=== PATIENT | male | born 1970 | race Caucasian/White ===

== ENCOUNTER 2018-01-14 09:59 | Emergency (ER) | payer SELFPAY ==
[2018-01-14] MEDS ORDERED: Bacitracin Oint 1 GM U/D Packet TOP ONE (10:25)
--- NOTE | 2018-01-14 10:25 | EDM.PDOC ---
ED HPI GENERAL MEDICAL PROBLEM - General Chief Complaint: Lower Extremity Injury/Pain Stated Complaint: PAIN IN FEET Time Seen by Provider: 01/14/18 10:03 Source of Information: Reports: Patient History Limitations: Reports: No Limitations - History of Present Illness INITIAL COMMENTS - FREE TEXT/NARRATIVE: HISTORY AND PHYSICAL: History of present illness: Patient is a 47-year-old male who presents to the emergency room today with multiple complaints and concerns. Patient reports he's had a long standing history of bilateral lower extremity pain or which she describes as a sharp burning pain and/or tingling sensation. When he is ambulating or standing for long periods of time the pain increases. He recently restarted working after taking 3 months off to help care for his mother. 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 Today he noticed his toe nail on the left great toe "was coming off". He was able to easily rip part of the nail off. Denies any injury or trauma to the affected toe. Patient last physical examination with lab work was approximately 2 years ago. He states he been seen multiple times for this lower extremity discomfort while in [place] and has been told both that it "could be" diabetes or neuropathy but never started treatment or was given any medication management. 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 Patient denies any fever, chills, chest pain, shortness of breath, abdominal pain, nausea, vomiting or diarrhea. Review of systems: As per history of present illness and below otherwise all systems reviewed and negative. Past medical history: As per history of present illness and as reviewed below otherwise noncontributory. Surgical history: As per history of present illness and as reviewed below otherwise noncontributory. Social history: No reported history of drug or alcohol abuse. Family history: As per history of present illness and as reviewed below otherwise noncontributory. Physical exam: General: Well-developed and well-nourished 47-year-old male. Alert and oriented. Nontoxic appearing and in no acute distress. HEENT: Atraumatic, normocephalic, pupils equal and reactive bilaterally, negative for conjunctival pallor or scleral icterus, mucous membranes moist, throat clear, neck supple, nontender, trachea midline. No drooling or trismus noted. No meningeal signs Lungs: Clear to auscultation, breath sounds equal bilaterally, chest nontender. Heart: S1S2, regular rate and rhythm without overt murmur Abdomen: Soft, nondistended, obese, nontender. Negative for masses or hepatosplenomegaly. Mild left costovertebral tenderness. Pelvis: Stable nontender. Genitourinary: Deferred. Rectal: Deferred. Skin: Intact, warm, dry. +CMS to bilateral LE. 1/4 of the distal portion on the left great toe nail appears to be ripped off (the skin around it appears WNL). No lesions or rashes noted. Extremities: Atraumatic, moves all per self without difficulty or deficiets. He is negative for cords or calf pain. Neurovascular unremarkable. Neuro: Awake, alert, oriented. Cranial nerves II through XII unremarkable. Cerebellum unremarkable. Motor and sensory unremarkable throughout. Exam nonfocal. Notes: During his physical examination, he mentions he has some left CVA tenderness with palpation. He said this has been going on for months and assumed it was musculoskeletal. No dysuria or hematuria. No changes in bowel pattern. His main concern today is his bilateral lower extremity pain and his ability to work. I will add a UA (for the flank discomfort)on at this time. X-ray shows mild soft tissue swelling, no fracture or acute abnormality. Labs are unremarkable; hemaglobin A1C is WNL. Will have the patient follow up with a primary care provider regarding this bilateral lower extremity pain. Patient has had these symptoms evaluated previously, without a definately diagnosis. He has presented today as he states he feels he is unable to perform that job duties, currently has insurance with his work, and would like a work note requesting he be on light work duty. I informed him that I am unable to restrict his job duties as there were no significant findings today. Encouraged him to follow-up with a primary caregiver for further evaluation and management done through primary care. Will prescribe Mobic once daily at this time for pain management. Patient voices understanding and is agreeable to plan of care. He denies any further questions at this time. Diagnostics: CBC, CMP, UA, hemoglobin A1c, x-ray Therapeutics: [] Impression: Lower extremity pain, bilaterally Plan: 1. Today's lab work was unremarkable. Please establish care with a local primary resident caregiver for further evaluation and management. 2. Mobic once daily for pain management. Please do not take any additional NSAIDs such as Aleve or Ibuprofen. May use Tylenol as needed. 3. When able to rest, keep your lower extremities elevated 4. Follow up with a primary resident caregiver within the next week, or sooner as needed. Return to the ED as needed and as discussed Definitive disposition and diagnosis as appropriate pending reevaluation and review of above. Duration: Chronic Location: Reports: Lower Extremity, Left, Lower Extremity, Right Bilateral Feet Pain Score (Numeric/FACES): 10 - Related Data Allergies Allergy/AdvReac Type Severity Reaction Status Date / Time Penicillins Allergy Hives Verified 01/14/18 10:11 Home Meds: Home Meds . [No Known Home Meds] 01/14/18 [History] Past Medical History - Past Health History Medical/Surgical History: Denies Medical/Surgical History - Infectious Disease History Infectious Disease History: Reports: Chicken Pox, Measles, Mumps Social & Family History - Family History Family Medical History: Noncontributory - Tobacco Use Smoking Status *Q: Never Smoker - Recreational Drug Use Recreational Drug Use: No Review of Systems - Review of Systems Review Of Systems: ROS reveals no pertinent complaints other than HPI. ED EXAM, GENERAL - Physical Exam Exam: See Below (See dictation) Course - Vital Signs Last Recorded V/S: Last Vital Signs Temp 96.8 F 01/14/18 10:08 Pulse 83 01/14/18 10:08 Resp 18 01/14/18 10:08 BP 166/76 H 01/14/18 10:08 Pulse Ox 94 L 01/14/18 10:08 - Orders/Labs/Meds Orders: Active Orders 24 hr Category Date Time Status Communication Order [RC] STAT Care 01/14/18 10:25 Active UA W/MICROSCOPIC [URIN] Stat Lab 01/14/18 11:50 Ordered Labs: Laboratory Tests 01/14/18 01/14/18 01/14/18 Range/Units 10:33 10:33 10:33 WBC 8.37 (4.0-11.0) K/uL RBC 4.52 (4.50-5.90) M/uL Hgb 13.9 (13.0-17.0) g/dL Hct 40.9 (38.0-50.0) % MCV 90.5 (80.0-98.0) fL MCH 30.8 (27.0-32.0) pg MCHC 34.0 (31.0-37.0) g/dL RDW Std Deviation 48.0 (28.0-62.0) fl RDW Coeff of Pia 15 (11.0-15.0) % Plt Count 219 (150-400) K/uL MPV 9.30 (7.40-12.00) fL Neut % (Auto) 56.3 (48.0-80.0) % Lymph % (Auto) 33.1 (16.0-40.0) % Gordon % (Auto) 8.4 (0.0-15.0) % Eos % (Auto) 1.7 (0.0-7.0) % Baso % (Auto) 0.5 (0.0-1.5) % Neut # (Auto) 4.7 (1.4-5.7) K/uL Lymph # (Auto) 2.8 H (0.6-2.4) K/uL Gordon # (Auto) 0.7 (0.0-0.8) K/uL Eos # (Auto) 0.1 (0.0-0.7) K/uL Baso # (Auto) 0.0 (0.0-0.1) K/uL Nucleated RBC % 0.0 /100WBC Nucleated RBCs # 0 K/uL Sodium 139 (136-148) mmol/L Potassium 3.8 (3.5-5.1) mmol/L Chloride 105 (98-107) mmol/L Carbon Dioxide 23.0 (21.0-32.0) mmol/L BUN 18 (7.0-18.0) mg/dL Creatinine 1.3 (0.8-1.3) mg/dL Est Cr Clr Drug Dosing 78.76 mL/min Estimated GFR (MDRD) 59.7 ml/min Glucose 108 H (74-106) mg/dL Hemoglobin A1c 5.9 (4.5-6.2) % Calcium 9.0 (8.5-10.1) mg/dL Total Bilirubin 0.7 (0.2-1.0) mg/dL AST 31 (15-37) IU/L ALT 38 (14-63) IU/L Alkaline Phosphatase 66 (46-116) U/L Total Protein 7.9 (6.4-8.2) g/dL Albumin 4.2 (3.4-5.0) g/dL Globulin 3.7 H (2.0-3.5) g/dL Albumin/Globulin Ratio 1.1 L (1.3-2.8) Urine Color Urine Appearance Urine pH (5.0-8.0) Ur Specific [place] (1.001-1.035) Urine Protein (NEGATIVE) mg/dL Urine Glucose (UA) (NEGATIVE) mg/dL Urine Ketones (NEGATIVE) mg/dL Urine Occult Blood (NEGATIVE) Urine Nitrite (NEGATIVE) Urine Bilirubin (NEGATIVE) Urine Urobilinogen (<2.0) EU/dL Ur Leukocyte Esterase (NEGATIVE) Urine RBC (0-2/HPF) Urine WBC (0-5/HPF) Ur Epithelial Cells (NONE-FEW) Urine Bacteria (NEGATIVE) Urine Mucus (NONE-MOD) 01/14/18 Range/Units 11:50 WBC (4.0-11.0) K/uL RBC (4.50-5.90) M/uL Hgb (13.0-17.0) g/dL Hct (38.0-50.0) % MCV (80.0-98.0) fL MCH (27.0-32.0) pg MCHC (31.0-37.0) g/dL RDW Std Deviation (28.0-62.0) fl RDW Coeff of Pia (11.0-15.0) % Plt Count (150-400) K/uL MPV (7.40-12.00) fL Neut % (Auto) (48.0-80.0) % Lymph % (Auto) (16.0-40.0) % Gordon % (Auto) (0.0-15.0) % Eos % (Auto) (0.0-7.0) % Baso % (Auto) (0.0-1.5) % Neut # (Auto) (1.4-5.7) K/uL Lymph # (Auto) (0.6-2.4) K/uL Gordon # (Auto) (0.0-0.8) K/uL Eos # (Auto) (0.0-0.7) K/uL Baso # (Auto) (0.0-0.1) K/uL Nucleated RBC % /100WBC Nucleated RBCs # K/uL Sodium (136-148) mmol/L Potassium (3.5-5.1) mmol/L Chloride (98-107) mmol/L Carbon Dioxide (21.0-32.0) mmol/L BUN (7.0-18.0) mg/dL Creatinine (0.8-1.3) mg/dL Est Cr Clr Drug Dosing mL/min Estimated GFR (MDRD) ml/min Glucose (74-106) mg/dL Hemoglobin A1c (4.5-6.2) % Calcium (8.5-10.1) mg/dL Total Bilirubin (0.2-1.0) mg/dL AST (15-37) IU/L ALT (14-63) IU/L Alkaline Phosphatase (46-116) U/L Total Protein (6.4-8.2) g/dL Albumin (3.4-5.0) g/dL Globulin (2.0-3.5) g/dL Albumin/Globulin Ratio (1.3-2.8) Urine Color YELLOW Urine Appearance CLEAR Urine pH 6.0 (5.0-8.0) Ur Specific [place] 1.025 (1.001-1.035) Urine Protein NEGATIVE (NEGATIVE) mg/dL Urine Glucose (UA) NEGATIVE (NEGATIVE) mg/dL Urine Ketones 15 H (NEGATIVE) mg/dL Urine Occult Blood NEGATIVE (NEGATIVE) Urine Nitrite NEGATIVE (NEGATIVE) Urine Bilirubin NEGATIVE (NEGATIVE) Urine Urobilinogen 1.0 (<2.0) EU/dL Ur Leukocyte Esterase NEGATIVE (NEGATIVE) Urine RBC 0-1 (0-2/HPF) Urine WBC 0-1 (0-5/HPF) Ur Epithelial Cells FEW (NONE-FEW) Urine Bacteria RARE (NEGATIVE) Urine Mucus LIGHT (NONE-MOD) Meds: Medications Discontinued Medications Generic Name Dose Route Start Last Admin Trade Name Freq PRN Reason Stop Dose Admin Bacitracin 1 dose 01/14/18 10:25 01/14/18 11:23 Bacitracin Oint 1 Gm TOP 01/14/18 10:26 1 dose ONETIME ONE Administration Departure - Departure Time of Disposition: 11:44 Disposition: Home, Self-Care 01 Clinical Impression: Lower extremity pain, bilateral - Discharge Information Referrals: PCP,None [Primary Care Provider] - Forms: ED Department Discharge Additional Instructions: The following information is given to patients seen in the emergency department who are being discharged to home. This information is to outline your options for follow-up care. We provide all patients seen in our emergency department with a follow-up referral. The need for follow-up, as well as the timing and circumstances, are variable depending upon the specifics of your emergency department visit. If you don't have a primary care physician on staff, we will provide you with a referral. We always advise you to contact your personal physician following an emergency department visit to inform them of the circumstance of the visit and for follow-up with them and/or the need for any referrals to a consulting specialist. The emergency department will also refer you to a specialist when appropriate. This referral assures that you have the opportunity for follow-up care with a specialist. All of these measure are taken in an effort to provide you with optimal care, which includes your follow-up. Under all circumstances we always encourage you to contact your private physician who remains a resource for coordinating your care. When calling for follow-up care, please make the office aware that this follow-up is from your recent emergency room visit. If for any reason you are refused follow-up, please contact the [facility] Emergency Department at and asked to speak to the emergency department charge nurse. [facility] [address] [place] [id number] 1. Today's lab work was unremarkable. Please establish care with a local primary resident caregiver for further evaluation and management. 2. Mobic once daily for pain management. Please do not take any additional NSAIDs such as Aleve or Ibuprofen. May use Tylenol as needed. 3. When able to rest, keep your lower extremities elevated 4. Follow up with a primary resident caregiver within the next week, or sooner as needed. Return to the ED as needed and as discussed - My Orders Last 24 Hours: My Active Orders 01/14/18 10:25 Communication Order [RC] STAT 01/14/18 11:50 UA W/MICROSCOPIC [URIN] Stat - Assessment/Plan Last 24 Hours: My Active Orders 01/14/18 10:25 Communication Order [RC] STAT 01/14/18 11:50 UA W/MICROSCOPIC [URIN] Stat
--- NOTE | 2018-01-14 11:13 | CR ---
EXAMINATION: Right great toe HISTORY: Pain COMPARISON: None TECHNIQUE: 3 views FINDINGS/IMPRESSION: Mild focal soft tissue swelling adjacent to the first MTP joint. No fracture or acute osseous abnormality. Early periarticular erosions noted medially without an acute osseous findi ng.
== END 2018-01-14 13:01 | disposition home or self-care (01) ==
LOC: MW.ED 09:59
DX: M79.672 Pain in left foot (principal); M79.671 Pain in right foot; Z88.0 Allergy status to penicillin
CPT/HCPCS: 36415; 73660-26-T5; 73660-T5; 80053; 81001; 83036; 85025; 99283